=== PATIENT | female | born 1945 | race Caucasian/White ===

== ENCOUNTER 2018-03-31 17:39 | Inpatient (IN) | payer OTHER ==
[~2018-03-31] VITALS: Ht 152.4 cm; Wt 67.5 kg
[2018-03-31 17:40] VITALS: BP 173/60
[2018-03-31] MEDS ORDERED: FUROSEMIDE 40 M40 M1 PO (17:53)
[2018-03-31] MEDS ORDERED: PROZAC20 MG PO (17:53)
[2018-03-31] MEDS ORDERED: FOSAMAX 70 MG T70 MG PO (17:53)
[2018-03-31] MEDS ORDERED: HYDROCHLOROTHIA25 M1 PO (17:54)
[2018-03-31] MEDS ORDERED: COZAAR 25 MG TA25 M1 PO (17:54)
[2018-03-31] MEDS ORDERED: LEVEMIR SUBQ (17:54)
[2018-03-31] MEDS ORDERED: LOPID600 MG PO (17:54)
[2018-03-31] MEDS ORDERED: POTASSIUM20 PO (17:55)
[2018-03-31] MEDS ORDERED: PRAVACHOL40 MG PO (17:55)
[2018-03-31] MEDS ORDERED: METFORMIN HCL500 MG PO (17:55)
[2018-03-31 19:08] LABS: ABSOLUTE BASOPHILS 0.1 thou/uL (0.0-0.2); ABSOLUTE EOSINOPHILS 0.3 thou/uL (0.0-0.7); ABSOLUTE LYMPHOCYTES 2.3 thou/uL (0.8-5.3); ABSOLUTE MONOCYTES 0.9 thou/uL (0.0-1.2); ABSOLUTE NEUTROPHILS 9.1 thou/uL (1.6-8.1); BASOPHILS 0.7 %; EOSINOPHILS 2.4 %; HEMATOCRIT 35.1 % (37.0-47.0); HEMOGLOBIN 11.5 gm/dL (12.0-15.0); LYMPHOCYTES 18.1 %; MCH 26.9 pg (26.0-34.0); MCHC 32.9 g/dL (28.0-37.0); MCV 81.8 fL (80.0-100.0); MONOCYTES 7.2 %; MPV 8.4 fl. (7.2-11.1); NUCLEATED RBCS 0 /100WBC; PLATELET COUNT* 243 thou/uL (150-400); POLYS 71.6 %; RBC 4.29 mil/uL (4.20-5.00); RDW-CV 14.7 % (10.5-14.5); WBC 12.7 thou/uL (4.0-11.0)
[2018-03-31 19:19] LABS: CALCIUM 9.3 mg/dL (8.5-10.1); CREATININE 1.3 mg/dL (0.6-1.3); POTASSIUM 3.5 mmol/L (3.5-5.1)
[2018-03-31 19:21] LABS: APTT 23.2 Seconds (25.0-31.3); INR 1.1; PROTIME 11.3 Seconds (9.20-11.50)
[2018-03-31 19:27] LABS: URINE BILIRUBIN NEGATIVE (Negative); URINE BLOOD NEGATIVE (Negative); URINE CLARITY CLEAR; URINE COLOR YELLOW; URINE GLUCOSE-RANDOM NEGATIVE (Negative); URINE KETONES NEGATIVE (Negative); URINE LEUKOCYTES NEGATIVE (Negative); URINE NITRITE NEGATIVE (Negative); URINE PROTEIN NEGATIVE (Negative); URINE UROBILINOGEN 0.2 E.U./dl (0.2-1.0)
[2018-03-31 19:30] LABS: ALBUMIN 4.4 g/dL (3.4-5.0); TOTAL BILIRUBIN 0.3 mg/dL (<0.1-1.0); TOTAL PROTEIN 7.8 g/dL (6.4-8.2)
[2018-03-31 20:17] VITALS: BP 169/56
[2018-03-31 22:00] VITALS: BP 152/59
[2018-04-01] MEDS ORDERED: FISH OIL 1,001000 M2 (02:07)
[2018-04-01] MEDS ORDERED: VITAMIN E400 UNIT (02:09)
[2018-04-01] MEDS ORDERED: VITAMINC500 PO (02:10)
[2018-04-01 03:55] LABS: HEMATOCRIT 33.4 % (37.0-47.0); HEMOGLOBIN 10.9 gm/dL (12.0-15.0); MCH 26.9 pg (26.0-34.0); MCHC 32.6 g/dL (28.0-37.0); MCV 82.3 fL (80.0-100.0); MPV 8.8 fl. (7.2-11.1); RBC 4.06 mil/uL (4.20-5.00); RDW-CV 14.6 % (10.5-14.5); WBC 13.6 thou/uL (4.0-11.0)
[2018-04-01 04:16] LABS: ALBUMIN 4.2 g/dL (3.4-5.0); CALCIUM 9.2 mg/dL (8.5-10.1); MAGNESIUM 1.9 mg/dL (1.8-2.4); POTASSIUM 3.3 mmol/L (3.5-5.1); TOTAL BILIRUBIN 0.5 mg/dL (<0.1-1.0); TOTAL PROTEIN 7.6 g/dL (6.4-8.2)
[2018-04-01 07:45] VITALS: BP 152/59
[2018-04-01 08:00] VITALS: BP 144/99
[2018-04-01 13:00] VITALS: BP 145/64
--- NOTE | 2018-04-01 13:59 | EKG ---
[place] [address] ELECTROCARDIOGRAM REPORT Name: LAINEY MOBLEY Room: [address] ADM IN ..#: [id number] Admission: 03/31/18 Attend Phys: Jones Jiang, Discharge: Date of : 49 Report #: [id number] THIS REPORT FOR: //name// [facility] ED Test Date: 2018-03-31 Test Time: 19:05:30 Pat Name: LAINEY MOBLEY Department: Room: [facility] Gender: F Switchman: HARSHIL : 1945 Requested By: Kristen Stiles Order Number: [id number] MD: Fady Balderas Measurements Intervals [place] Rate: 86 P: 67 [place]: 171 QRS: 26 QRSD: 93 T: 33 QT: 391 QTc: 468 Interpretive Statements Sinus rhythm Baseline wander in lead(s) V6 No previous ECG available for comparison Electronically Signed On 04-01-2018 13:59:48 CDT by Fady Balderas [email or web address] <ELECTRONICALLY SIGNED> By: Wilton Balderas MD, [facility] 04/01/18 1359 1905 Wilton Balderas MD, [facility] /EPI
[2018-04-01 16:00] VITALS: BP 157/63
[2018-04-01 17:49] LABS: CALCIUM 8.3 mg/dL (8.5-10.1); CREATININE 1.1 mg/dL (0.6-1.3); MAGNESIUM 1.7 mg/dL (1.8-2.4); POTASSIUM 3.4 mmol/L (3.5-5.1)
[2018-04-01 20:00] VITALS: BP 115/53
[2018-04-02] VITALS: BP 117/53
[2018-04-02 04:00] VITALS: BP 107/56
[2018-04-02 05:10] LABS: HEMATOCRIT 24.4 % (37.0-47.0)
[2018-04-02 05:11] LABS: ALBUMIN 3.4 g/dL (3.4-5.0); CALCIUM 7.8 mg/dL (8.5-10.1); CREATININE 1.2 mg/dL (0.6-1.3); MAGNESIUM 1.6 mg/dL (1.8-2.4); POTASSIUM 3.9 mmol/L (3.5-5.1); TOTAL BILIRUBIN 0.3 mg/dL (<0.1-1.0)
[2018-04-02 05:22] LABS: HEMOGLOBIN 8.1 gm/dL (12.0-15.0)
[2018-04-02 08:08] VITALS: BP 109/46
[2018-04-02 12:00] VITALS: BP 120/45
[2018-04-02 16:00] VITALS: BP 110/45
[2018-04-02 20:10] VITALS: BP 114/47
[2018-04-03] VITALS: BP 128/48
[2018-04-03 04:00] VITALS: BP 125/51
[2018-04-03 04:27] LABS: HEMATOCRIT 21.5 % (37.0-47.0); MCH 27.4 pg (26.0-34.0); MCHC 32.6 g/dL (28.0-37.0); MCV 84.1 fL (80.0-100.0); MPV 9.1 fl. (7.2-11.1); RBC 2.55 mil/uL (4.20-5.00); RDW-CV 14.6 % (10.5-14.5); WBC 13.1 thou/uL (4.0-11.0)
[2018-04-03 04:54] LABS: CALCIUM 8.1 mg/dL (8.5-10.1); MAGNESIUM 1.8 mg/dL (1.8-2.4); POTASSIUM 3.9 mmol/L (3.5-5.1)
[2018-04-03 09:00] VITALS: BP 119/53
[2018-04-03 10:56] VITALS: BP 119/45; BP 122/50; BP 123/51; BP 128/44; BP 130/43
[2018-04-03 22:59] VITALS: BP 146/55
[2018-04-04 04:05] LABS: HEMATOCRIT 24.4 % (37.0-47.0); MCH 26.8 pg (26.0-34.0); MCHC 32.9 g/dL (28.0-37.0); MCV 81.5 fL (80.0-100.0); MPV 8.4 fl. (7.2-11.1); RBC 2.99 mil/uL (4.20-5.00); RDW-CV 14.8 % (10.5-14.5)
[2018-04-04 04:17] LABS: CALCIUM 8.5 mg/dL (8.5-10.1); CREATININE 0.9 mg/dL (0.6-1.3); MAGNESIUM 1.8 mg/dL (1.8-2.4); POTASSIUM 4.1 mmol/L (3.5-5.1)
[2018-04-04 09:00] VITALS: BP 138/61
[2018-04-04] MEDS ORDERED: ELIQUIS2.5 MG PO (11:42)
[2018-04-04] MEDS ORDERED: OXYCODONE HCL5 M1 PO (11:43)
[2018-04-04 11:44] VITALS: BP 138/61
[2018-04-04 11:46] VITALS: BP 138/61
--- NOTE | 2018-04-05 07:15 | OP ---
[facility] [address] [place] [address] OPERATIVE REPORT Name: LAINEY MOBLEY Room: [address]#: [id number] Admission: 03/31/18 Attend Phys: Jones Jiang, Discharge: 04/04/18 Date of : 49 Report #: [id number] THIS REPORT FOR: //name// CC: Swathi Jiang DICTATED BY: Ivan Andrade DO DATE OF SERVICE: 04/01/2018 PREOPERATIVE DIAGNOSIS: Left subtrochanteric femur fracture. POSTOPERATIVE DIAGNOSIS: Left subtrochanteric femur fracture. PROCEDURE PERFORMED: Open reduction and internal fixation of left subtrochanteric femur fracture. SURGEON: Tristin Harden DO EXTRUSION DIE REPAIRER: Ivan Andrade DO SECOND EXTRUSION DIE REPAIRER: Kole Park DO ESTIMATED BLOOD LOSS: 50. ANESTHESIA: General with local 0.25% Marcaine 30 mL. SPECIMENS REMOVED: None. DRAINS: None. COMPLICATIONS: None. ANTIBIOTICS: 600 mg clindamycin IV piggyback preop. IMPLANTS USED: 1. Rehan gamma nail system 11 x 360 mm x 125 degree cephalomedullary nail. 2. A 10.5 x 80 mm lag screw. 3. A 5 x 37.5 mm distal locking screw. 4. A 5 x 40 mm distal locking screw. CONDITION: Stable. INDICATION FOR PROCEDURE: The patient is a pleasant 73-year-old female who sustained a fall yesterday, injuring her left leg. She fell onto her hands and knees and initially had inability to bear weight on left lower extremity and [facility] [address] [place] [address] OPERATIVE REPORT Name: LAINEY MOBLEY Room: [address] IN [facility]#: [id number] Admission: 03/31/18 Attend Phys: Jones Jiang, Discharge: 04/04/18 Date of : 49 Report #: [id number] minimal pain. She was seen in the ED and radiographic evaluation revealed an atypical femur fracture to the left. 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 She denies any other musculoskeletal complaint and we discussed the risks, benefits, complications, alternatives, and indications of surgical fixation of her fracture. These risks include but are not limited to risk of infection, need for repeat surgery, continued pain and stiffness, difficulty with ambulation, increased risk of postoperative complications, malunion, nonunion, as well as DVT, PE, and risks associated with anesthesia up to and including . She voiced understanding and wished to proceed. DESCRIPTION OF PROCEDURE: The patient was seen in the preoperative holding area. Correct operative site was marked. Verbal and written consents were obtained. She was transferred to the operative suite and placed supine on the operating table, and given the benefit of general anesthesia by the Anesthesia Team. The left lower extremity had a well-padded boot placed and the right lower extremity was placed in the Well-Leg wall, well padded. Once she was secured to the table, C-arm was utilized to attempt reduction of the fracture. With traction we were able to get the femur out to length. The left leg was then prepped and draped in normal sterile fashion and a timeout was performed, all in attendance were in agreement on correct operative site and procedure to be performed. We then marked our starting point and fracture site and then a 10 blade scalpel was used to incise the skin and the IT band, and blunt dissection was taken down to the level of the greater trochanter. We then used a starting guidewire to verify placement of our starting guidewire using both AP and lateral C-arm images. We then inserted our starting awl to provide a better reduction of the proximal fragment. This was extended and internally rotated while the distal fragment was flexed and then our ball-tipped guidewire was passed. We then reamed starting with a 9 mm reamer up to a 13 mm reamer for an 11 mm nail. Reduction was held during reaming. Once our reamings were performed, we passed our 11 x 360 mm x 125 degree Rehan gamma nail. We did use C-arm during passage of the nail to verify our reduction with both length, alignment and rotation. Once this was found to be acceptable and malleted into place to the correct level, we placed our two in one guide for our lag screw. The skin was incised using a 10 blade scalpel, taken down through the level of the IT band and our guide was passed to the level of bone. We then drilled our guidewire and this measured 80 mm. We then reamed for the lag screw and the lag screw was passed. The locking screw was then placed and tightened. The gamma nail aiming guide was then removed and the C-arm was placed lateral to the knee for perfect circles. We then used a 15 blade scalpel to incise the skin through the IT band and using C-arm assistance with perfect circles we drilled both of our distal locking screws. The most proximal measured 37.5 mm, distal screw measured 40 mm and these were both passed and verified the placement on lateral and AP C-arm images. Once this was performed, the final x-rays were taken and saved to the chart. All wounds were thoroughly irrigated using sterile saline and the IT band was closed proximally utilizing 0 Vicryl in a [id number] fashion, and all skin was closed using 2-0 Vicryl and opal. Mepilex [facility] [address] [place] [address] OPERATIVE REPORT Name: LAINEY MOBLEY Room: [address]#: [id number] Admission: 03/31/18 Attend Phys: Jones Jiang, Discharge: 04/04/18 Date of : 49 Report #: [id number] dressings were placed over our incisions. The patient was awoken from anesthesia and transferred to PACU in stable condition. All needle and scrub counts were correct at the end of the case x 2. I do attest Dr. Harden was present through all critical decision making aspects of the case. DISPOSITION: The patient was transferred to the PACU in stable condition. She will be monitored and when awake and alert she will be transferred back to her inpatient bed. We will allow weightbear as tolerated on the left lower extremity. She will be given chemical and mechanical DVT prophylaxis with SCDs and Eliquis 2.5 mg p.o. b.i.d. P.o. analgesia was ordered for her consisting of tramadol given her ACETAMINOPHEN ALLERGY. She will receive postoperative weight-based antibiotics of 600 mg clindamycin. <ELECTRONICALLY SIGNED> By: Kwabena Clement DO 04/05/18 0715 [id number] [id number] Harden DO /nt
== END 2018-04-04 16:14 | disposition home health service (06) | DRG 481 ==
LOC: M.ERS 17:39 → M.TBA-ER 19:39 → M.3W 19:39
PROVIDERS: Internal Medicine; Nurse Practitioner Family; Orthopaedic Surgery; ADMIT Family Medicine
PROC: 0QS706Z Reposition Left Upper Femur with Intramedullary Internal Fixation Device, Open Approach (ICD-10-PCS; principal; 2018-04-01)
PROC: 30233N1 Transfusion of Nonautologous Red Blood Cells into Peripheral Vein, Percutaneous Approach (ICD-10-PCS; 2018-04-03)
DX: S72.22XA Displaced subtrochanteric fracture of left femur, initial encounter for closed fracture (principal); D62 Acute posthemorrhagic anemia; E78.5 Hyperlipidemia, unspecified; W03.XXXA Other fall on same level due to collision with another person, initial encounter; M85.80 Other specified disorders of bone density and structure, unspecified site; E66.9 Obesity, unspecified; M81.0 Age-related osteoporosis without current pathological fracture; E87.6 Hypokalemia; N18.3 Chronic kidney disease, stage 3 (moderate); F32.9 Major depressive disorder, single episode, unspecified; I12.9 Hypertensive chronic kidney disease with stage 1 through stage 4 chronic kidney disease, or unspecified chronic kidney disease; F41.9 Anxiety disorder, unspecified; E11.22 Type 2 diabetes mellitus with diabetic chronic kidney disease; K21.9 Gastro-esophageal reflux disease without esophagitis; Z90.710 Acquired absence of both cervix and uterus; Z98.51 Tubal ligation status; Z79.84 Long term (current) use of oral hypoglycemic drugs; Z79.4 Long term (current) use of insulin; Z88.0 Allergy status to penicillin; Z88.6 Allergy status to analgesic agent; Y93.89 Activity, other specified; Z79.899 Other long term (current) drug therapy; Y92.89 Other specified places as the place of occurrence of the external cause; Y99.8 Other external cause status; Z82.49 Family history of ischemic heart disease and other diseases of the circulatory system; Z68.29 Body mass index [BMI] 29.0-29.9, adult